=== PATIENT | male | born 1985 | race Caucasian/White ===

== ENCOUNTER 2020-06-05 06:20 | Inpatient (IN) ==
[2020-06-05] MEDS ORDERED: DIPH/TET/ACEL PERT BOOSTER VACCINE 0.5 ML VIAL IM ONE (06:27)
[2020-06-05 06:42] LABS: Basophils % 0.3 % (0.0-0.8); Eosinophils # 0.2 10*3/uL (0.0-0.87); Eosinophils % 1.7 % (0.00-10.9); Hematocrit 43.4 VOL% (42.0-52.0); Immature Granulocytes % 0.7 %; Lymphocytes # 2.6 10*3/uL (1.4-4.0); Lymphocytes % 19.5 % (21.2-54.2); Mean Corpuscular HGB Conc 32.3 GM/DL (32-36); Mean Corpuscular Volume 97.1 FL (87-102); Mean Platelet Volume 10.2 FL (9.6-12.0); Neutrophils % 69.8 % (38.7-73.9); Platelet Count 393 T/CUMM (130-400); Red Blood Count 4.47 MC/CUMM (3.8-5.5); Red Cell Distribution Width 13.3 % (9.3-17.3); White Blood Count 13.4 T/CUMM (4-12)
[2020-06-05 06:49] LABS: PT Patient Result 10.3 SECS (9.8-11.9); Partial Thromboplastin Time 27.1 SECS (23.9-33.8)
[2020-06-05 06:59] LABS: Alanine Aminotransferase 105 U/L (16-61); Albumin 3.4 G/DL (3.4-5.0); Alkaline Phosphatase 97 U/L (45-117); Aspartate Amino Transferase 168 U/L (0-37); Blood Urea Nitrogen 9 MG/DL (7-18); Calcium 7.9 MG/DL (8.5-10.1); Carbon Dioxide 29 MMOL/L (21-32); Estimated Glom Filtration Rate 100 ML/MIN; Glucose 127 MG/DL (74-106); Osmolality,Calculated 275.7 MOS/KG (273-304); Potassium 3.4 MMOL/L (3.5-5.1); Sodium 138 MMOL/L (136-145); Total Protein 7.2 G/DL (6.4-8.3)
[2020-06-05] MEDS ORDERED: GENTAMICIN INJ 160 MG in SODIUM CHLORIDE 0.9% 100 ML IV STA (07:06)
[2020-06-05] MEDS ORDERED: CLINDAMYCIN INJ 600 MG in PREMIX 1 EACH IV STA (07:08)
[2020-06-05] MEDS ORDERED: HYDROmorphone 2 MG/1 ML VIAL IV STA (07:10)
[2020-06-05] MEDS ORDERED: ONDANSETRON 4 MG/2 ML VIAL IV STA (07:10)
[2020-06-05] MEDS ORDERED: GENTAMICIN 80 MG/2 ML VIAL ONE (08:57)
[2020-06-05] MEDS ORDERED: CLINDAMYCIN INJ 900 MG in PREMIX 1 EACH IV ONE (10:09)
[2020-06-05] MEDS ORDERED: LIDOCAINE 1% 5 ML VIAL ONE (10:15)
[2020-06-05] MEDS ORDERED: DEXAMETHASONE 4 MG/1 ML VIAL ONE (10:15)
[2020-06-05] MEDS ORDERED: ROPIVACAINE 0.5% 30 ML VIAL ONE (10:15)
[2020-06-05] MEDS ORDERED: propofoL 200 MG/20 ML VIAL IV ONE (10:20)
[2020-06-05] MEDS ORDERED: LIDOCAINE 2% 5 ML VIAL ONE (10:20)
[2020-06-05] MEDS ORDERED: SUCCINYLCHOLINE 200 MG/10 ML VIAL ONE (10:20)
[2020-06-05] MEDS ORDERED: ROCURONIUM 50 MG/5 ML VIAL IV ONE (10:20)
[2020-06-05] MEDS ORDERED: CLINDAMYCIN INJ 50 ML IV ONE (11:20)
[2020-06-05] MEDS ORDERED: LACTATED RINGERS 1,000 ML IV SCH (11:30)
[2020-06-05] MEDS ORDERED: ONDANSETRON 4 MG/2 ML VIAL IV PRN ×2 (11:49→14:33)
[2020-06-05] MEDS ORDERED: KETOROLAC 30 MG/1 ML VIAL IV PRN (11:49)
[2020-06-05] MEDS ORDERED: diphenhydrAMINE CAP 25 MG CAPSULE PO PRN (11:49)
[2020-06-05] MEDS ORDERED: ZALEPLON 5 MG CAPSULE PO PRN (11:49)
[2020-06-05] MEDS ORDERED: MAGNESIUM HYDROXIDE SUSP 30 ML UDCUP PO PRN (11:49)
[2020-06-05] MEDS ORDERED: SEVOFLURANE 1 UNIT/15 MINUTE INH ONE (12:30)
[2020-06-05] MEDS ORDERED: BACITRACIN OINT 0.9 GM PACK TOP ONE (13:20)
[2020-06-05] MEDS ORDERED: ONDANSETRON 4 MG/2 ML VIAL ONE (13:28)
[2020-06-05 13:56] LABS: Bilirubin,Urine Negative (Negative); Blood, Urine Negative (Negative); Glucose,Urine (UA) Negative (Negative); Ketones,Urine Negative (Negative); Mucus,Urine Occasional /LPF (Occasional); Nitrite,Urine Negative (Negative); Protein,Urine 30 MG/DL; RBC,Urine 3 /HPF (0-4); Urine Appearance CLEAR (Clear); Urine Color Yellow (Yellow); Urine Specific Gravity 1.015 (1.001-1.035); Urine Urobilinogen < 2.0 EU/DL (0.2-1.0); WBC,Urine 4 /HPF (0-6)
[2020-06-05 13:56] LABS: Barbiturates Screen,Urine Negative (Negative); Benzodiazepines Screen,Urine Positive (Negative); Cannabinoid Screen,Urine Positive (Negative); Opiate Screen,Urine Positive (Negative); Phencyclidine Screen,Urine Negative (Negative)
[2020-06-05] MEDS ORDERED: MEPERIDINE 25 MG/1 ML VIAL IV PRN (14:33)
[2020-06-05] MEDS ORDERED: PROMETHAZINE INJ 25 MG in SODIUM CHLORIDE 0.9% 50 ML IV PRN (14:33)
[2020-06-05] MEDS ORDERED: diphenhydrAMINE 50 MG/1 ML VIAL IV PRN (14:33)
[2020-06-05] MEDS ORDERED: MORPHINE 4 MG/1 ML VIAL IV PRN (14:33)
[2020-06-05] MEDS: HYDROmorphone 2 MG/1 ML VIAL IV PRN ×4 (14:40→14:55)
[2020-06-05] MEDS: LACTATED RINGERS 1,000 ML IV SCH ×2 (14:43→21:19)
[2020-06-05] MEDS: CLINDAMYCIN INJ 900 MG in PREMIX 1 EACH IV SCH (18:30)
[2020-06-05] MEDS: DOCUSATE SODIUM 100 MG CAPSULE PO SCH (21:10)
[2020-06-05] MEDS: POTASSIUM CHLORIDE INJ 20 MEQ in LACTATED RINGERS 1,000 ML IV SCH ×2 (23:07→23:09)
[2020-06-06] MEDS: CLINDAMYCIN INJ 900 MG in PREMIX 1 EACH IV SCH (01:12)
[2020-06-06] MEDS: FONDAPARINUX 2.5 MG/0.5 ML SYRINGE SUBCUT SCH (06:42)
[2020-06-06 06:48] LABS: Basophils % 0.2 % (0.0-0.8); Eosinophils % 0.3 % (0.00-10.9); Hematocrit 38.7 VOL% (42.0-52.0); Hemoglobin 12.7 GM/DL (14.0-18.0); Immature Granulocytes % 0.5 %; Immature Granulocytes Absolute 0.06 #; Lymphocytes # 1.3 10*3/uL (1.4-4.0); Lymphocytes % 11.7 % (21.2-54.2); Mean Corpuscular HGB Conc 32.8 GM/DL (32-36); Mean Corpuscular Volume 94.9 FL (87-102); Mean Platelet Volume 10.3 FL (9.6-12.0); Monocytes % 14.9 % (1.7-12.7); Neutrophils % 72.4 % (38.7-73.9); Platelet Count 323 T/CUMM (130-400); Red Blood Count 4.08 MC/CUMM (3.8-5.5); Red Cell Distribution Width 13.5 % (9.3-17.3); White Blood Count 11.4 T/CUMM (4-12)
[2020-06-06 07:08] LABS: Calcium 8.3 MG/DL (8.5-10.1); Potassium 4.2 MMOL/L (3.5-5.1)
[2020-06-06] MEDS: MORPHINE 4 MG/1 ML VIAL IV PRN ×5 (07:28→22:39)
[2020-06-06] MEDS: DOCUSATE SODIUM 100 MG CAPSULE PO SCH ×2 (09:10→20:04)
[2020-06-06] MEDS: LACTATED RINGERS 1,000 ML IV SCH (10:42)
[2020-06-06] MEDS: POTASSIUM CHLORIDE INJ 20 MEQ in LACTATED RINGERS 1,000 ML IV SCH (10:44)
[2020-06-06] MEDS: buPROPion XL 150 MG TABLET PO SCH (13:15)
[2020-06-07] MEDS: MORPHINE 4 MG/1 ML VIAL IV PRN ×7 (02:46→23:40)
[2020-06-07 05:05] LABS: Basophils % 0.2 % (0.0-0.8); Eosinophils # 0.1 10*3/uL (0.0-0.87); Eosinophils % 1.1 % (0.00-10.9); Hematocrit 41.5 VOL% (42.0-52.0); Hemoglobin 13.2 GM/DL (14.0-18.0); Immature Granulocytes % 0.7 %; Immature Granulocytes Absolute 0.09 #; Lymphocytes # 1.7 10*3/uL (1.4-4.0); Lymphocytes % 13.8 % (21.2-54.2); Mean Corpuscular HGB Conc 31.8 GM/DL (32-36); Mean Corpuscular Volume 98.6 FL (87-102); Mean Platelet Volume 10.2 FL (9.6-12.0); Monocytes % 16.1 % (1.7-12.7); Neutrophils % 68.1 % (38.7-73.9); Platelet Count 307 T/CUMM (130-400); Red Blood Count 4.21 MC/CUMM (3.8-5.5); Red Cell Distribution Width 13.5 % (9.3-17.3); White Blood Count 12.3 T/CUMM (4-12)
[2020-06-07 05:24] LABS: Eosinophils 1 % (0-10); Lymphocytes 13 % (20-55); Platelet Estimate Adequate; Segmented Neutrophils 74 % (50-85); Total Cells Counted 100
[2020-06-07] MEDS: FONDAPARINUX 2.5 MG/0.5 ML SYRINGE SUBCUT SCH (05:57)
[2020-06-07] MEDS: buPROPion XL 150 MG TABLET PO SCH (08:47)
[2020-06-07] MEDS: DOCUSATE SODIUM 100 MG CAPSULE PO SCH ×3 (08:47→20:44)
[2020-06-07] MEDS ORDERED: buPROPion XL 150 MG TABLET PO SCH (13:00)
[2020-06-08] MEDS: MORPHINE 4 MG/1 ML VIAL IV PRN ×4 (04:34→16:42)
[2020-06-08] MEDS: FONDAPARINUX 2.5 MG/0.5 ML SYRINGE SUBCUT SCH (06:39)
[2020-06-08] MEDS: DOCUSATE SODIUM 100 MG CAPSULE PO SCH (08:46)
[2020-06-08] MEDS: buPROPion XL 150 MG TABLET PO SCH (08:46)
[2020-06-08 16:35] VITALS: BP 132/82
== END 2020-06-08 17:52 | disposition home or self-care (01) | DRG 482 ==
LOC: EDBD → EDUNIT# → N.ED 06:20 → N.EDINP 06:20 → OBSVTOIN 11:49 → N.3E 15:43
PROVIDERS: ADMIT Orthopaedic Surgery; ATTEND Orthopaedic Surgery